=== PATIENT | female | born 1995 | race African-American/Black ===

== ENCOUNTER 2017-09-01 22:38 | Emergency (ER) | payer OTHER ==
[~2017-09-01] VITALS: Ht 157.5 cm; Wt 88.5 kg
[~2017-09-01 22:38] MED LIST: ALBU6.7H INH; FLUT1SPR5 EACH NARE
[2017-09-01 22:41] VITALS: BP 114/73; PULSE 95; RESP 18; TEMP 99; O2SAT 99
[2017-09-01] MEDS ORDERED: SODIUM CHLOR 0.9% 1000 ML INJ 1,000 ML IV SCH (23:30)
[2017-09-01] MEDS ORDERED: SODIUM CHLORIDE 0.9% FLUSH 10 ML FLUSH IV FLUSH PRN (23:30)
[2017-09-01] MEDS ORDERED: ONDANSETRON HCL 4 MG/2 ML VIAL IVP ONE (23:30)
--- NOTE | 2017-09-01 23:42 | PD ---
HPI Chief Complaint: GI Complaint Time Seen by Provider: 23:24 Travel History International Travel<30 days: No Contact w/Intl Traveler<30days: No Traveled to known affect area: No History of Present Illness HPI 22-year-old female complains of nausea vomiting patient states the symptoms started this afternoon. Family members with same symptoms. Patient denies any headache. Patient denies any chest pain or shortness of breath. Patient denies abdominal pain. Patient denies any dysuria or frequency. Patient denies any vaginal discharge or bleeding. Patient denies any fever chills. PFSH Past Medical History Asthma: Yes Diminished Hearing: No ?: Not Social History Alcohol Use: No Tobacco Use: No Substance Use: No Allergies-Medications (Allergen,Severity, Reaction): Coded Allergies: No Known Allergies (Unverified Adverse Reaction, Unknown, 09/01/17) Reported Meds & Prescriptions Reported Meds & Active Scripts Active No Active Prescriptions or Reported Medications Review of Systems General / Constitutional: No: Fever Eyes: No: Visual changes HENT: No: Headaches Cardiovascular: No: Chest Pain or Discomfort Respiratory: No: Shortness of Breath Gastrointestinal: Positive: Nausea, Vomiting, No: Abdominal Pain Genitourinary: No: Dysuria Musculoskeletal: No: Pain Skin: No Rash Neurologic: No: Weakness Psychiatric: No: Depression Endocrine: No: Polydipsia Hematologic/Lymphatic: No: Easy Bruising Physical Exam Narrative GENERAL: Well-nourished, well-developed patient. SKIN: Focused skin assessment warm/dry. HEAD: Normocephalic. EYES: No scleral icterus. No injection or drainage. NECK: Supple, trachea midline. No JVD or lymphadenopathy. CARDIOVASCULAR: Regular rate and rhythm without murmurs, gallops, or rubs. RESPIRATORY: Breath sounds equal bilaterally. No accessory muscle use. GASTROINTESTINAL: Abdomen soft, non-tender, nondistended. MUSCULOSKELETAL: No cyanosis, or edema. BACK: Nontender without obvious deformity. No CVA tenderness. Neurologic exam normal. Data Data Last Documented VS Vital Signs Date Time Temp Pulse Resp B/P (MAP) Pulse Ox O2 Delivery O2 Flow Rate FiO2 09/02/17 00:01 99 Room Air 09/01/17 23:08 20 09/01/17 22:41 99.0 95 Orders Orders Complete Blood Count With Diff (09/01/17 23:30) Comprehensive Metabolic Panel (09/01/17 23:30) Lipase (09/01/17 23:30) Urinalysis - C+S If Indicated (09/01/17 23:30) Iv Access Insert/Monitor (09/01/17 23:30) Ecg Monitoring (09/01/17 23:30) Oximetry (09/01/17 23:30) Ondansetron Inj (Zofran Inj) (09/01/17 23:30) Sodium Chlor 0.9% 1000 Ml Inj (Ns 1000 M (09/01/17 23:30) Sodium Chloride 0.9% Flush (Ns Flush) (09/01/17 23:30) Ed Urine Pregnancytest Poc (09/01/17 23:40) Metoclopramide Inj (Reglan Inj) (09/02/17 00:15) Diphenhydramine Inj (Benadryl Inj) (09/02/17 00:15) Sodium Chlor 0.9% 1000 Ml Inj (Ns 1000 M (09/02/17 00:15) Labs Laboratory Tests Test 09/01/17 23:40 09/02/17 02:16 White Blood Count 5.1 TH/MM3 Red Blood Count 4.68 MIL/MM3 Hemoglobin 13.9 GM/DL Hematocrit 41.3 % Mean Corpuscular Volume 88.3 FL Mean Corpuscular Hemoglobin 29.7 PG Mean Corpuscular Hemoglobin Concent 33.7 % Red Cell Distribution Width 13.6 % Platelet Count 378 TH/MM3 Mean Platelet Volume 8.8 FL Neutrophils (%) (Auto) 87.6 % Lymphocytes (%) (Auto) 6.2 % Monocytes (%) (Auto) 5.3 % Eosinophils (%) (Auto) 0.5 % Basophils (%) (Auto) 0.4 % Neutrophils # (Auto) 4.5 TH/MM3 Lymphocytes # (Auto) 0.3 TH/MM3 Monocytes # (Auto) 0.3 TH/MM3 Eosinophils # (Auto) 0.0 TH/MM3 Basophils # (Auto) 0.0 TH/MM3 CBC Comment DIFF FINAL Differential Comment Blood Urea Nitrogen 11 MG/DL Creatinine 1.12 MG/DL Random Glucose 124 MG/DL Total Protein 8.0 GM/DL Albumin 4.0 GM/DL Calcium Level 9.5 MG/DL Alkaline Phosphatase 80 U/L Aspartate Amino Transf (AST/SGOT) 19 U/L Alanine Aminotransferase (ALT/SGPT) 21 U/L Total Bilirubin 0.7 MG/DL Sodium Level 139 MEQ/L Potassium Level 3.4 MEQ/L Chloride Level 110 MEQ/L Carbon Dioxide Level 17.3 MEQ/L Anion Gap 12 MEQ/L Estimat Glomerular Filtration Rate 75 ML/MIN Lipase 99 U/L Urine Color YELLOW Urine Turbidity HAZY Urine pH 6.0 Urine Specific [place] 1.024 Urine Protein TRACE mg/dL Urine Glucose (UA) NEG mg/dL Urine Ketones 80 mg/dL Urine Occult Blood NEG Urine Nitrite NEG Urine Bilirubin NEG Urine Urobilinogen LESS THAN 2.0 MG/DL Urine Leukocyte Esterase TRACE Urine RBC 2 /hpf Urine WBC 1 /hpf Urine Squamous Epithelial Cells 12 /hpf Urine Bacteria RARE /hpf Urine Mucus FEW /lpf Microscopic Urinalysis Comment CULT NOT INDICATED MDM Medical Decision Making Medical Screen Exam Complete: Yes Emergency Medical Condition: Yes Interpretation(s) 3:08 AM. CBC within normal limit. WBC 5.1. 87 neutrophil. Potassium 3.4. Chloride 110. Bicarbonate 17.3. Creatinine 1.12. UA negative. Differential Diagnosis Differential diagnosis including gastroenteritis, electrolyte imbalance, dehydration, gastritis, pancreatitis, cholecystitis, UTI, pyelonephritis. Narrative Course 22-year-old female with persistent nausea vomiting since noontime today. Normal saline solution 1 L IV bolus. Zofran 4 mg IV. Reglan 10 mg IV. Benadryl 25 mg IV. Diagnosis Primary Impression: Gastroenteritis Additional Impression: Dehydration Patient Instructions: General Instructions Additional Instructions: Advance diet as tolerated. Take medications as needed for nausea vomiting. Follow-up with personal physician. Return if persistent problem or worse. Med/Other Pt SpecificInfo: Prescription(s) given Scripts Promethazine (Phenergan) 25 Mg Tablet 25 MG PO Q6H Y for NAUSEA OR VOMITING, #10 TAB 0 Refills Prov: Zay Leo MD 09/02/17 Ondansetron Odt (Zofran Odt) 4 Mg Tab 4 MG SL Q6HR Y for Nausea/Vomiting, #10 TAB 0 Refills Prov: Zay Leo MD 09/02/17 Disposition: 01 DISCHARGE HOME Condition: Stable Zay Leo MD Sep 01, 2017 23:42
[2017-09-01 23:51] LABS: AUTOMATED NEUTROPHIL # 4.5 TH/MM3 (1.8-7.7); BASOPHIL % 0.4 % (0.0-2.0); EOSINOPHIL % 0.5 % (0.0-4.0); HEMATOCRIT 41.3 % (35.0-46.0); HEMOGLOBIN 13.9 GM/DL (11.6-15.3); LYMPH % 6.2 % (9.0-44.0); LYMPHOCYTE # 0.3 TH/MM3 (1.0-4.8); MEAN CELL VOLUME 88.3 FL (80.0-100.0); MEAN CORPUSCULAR HEMOGLOBIN 29.7 PG (27.0-34.0); MEAN CORPUSCULAR HGB CONC 33.7 % (32.0-36.0); MEAN PLATELET VOLUME 8.8 FL (7.0-11.0); MONO % 5.3 % (0.0-8.0); MONOCYTE # 0.3 TH/MM3 (0-0.9); NEUT % 87.6 % (16.0-70.0); PLATELET COUNT 378 TH/MM3 (150-450); RED BLOOD COUNT 4.68 MIL/MM3 (4.00-5.30); RED CELL DISTRIBUTION WIDTH 13.6 % (11.6-17.2); WHITE BLOOD COUNT 5.1 TH/MM3 (4.0-11.0)
[2017-09-02 00:01] VITALS: O2SAT 99
[2017-09-02 00:10] LABS: AST (GOT) 19 U/L (16-38); BICARBONATE 17.3 MEQ/L (21.0-32.0); BLOOD UREA NITROGEN 11 MG/DL (7-18); CALCIUM 9.5 MG/DL (8.5-10.1); CHLORIDE 110 MEQ/L (98-107); CREATININE 1.12 MG/DL (0.50-1.00); GLOMERULAR FILTRATION RATE 75 ML/MIN (>89); GLUCOSE,RANDOM 124 MG/DL (74-106); SODIUM (NA) 139 MEQ/L (136-145)
[2017-09-02 00:14] LABS: ALKALINE PHOSPHATASE 80 U/L (45-117); ALT (GPT) 21 U/L (9-42); TOTAL BILIRUBIN ADULT 0.7 MG/DL (0.2-1.0)
[2017-09-02] MEDS ORDERED: diphenhydrAMINE HCL 50 MG/ML VIAL IV PUSH ONE (00:15)
[2017-09-02] MEDS ORDERED: METOCLOPRAMIDE HCL 10 MG/2 ML VIAL IV PUSH ONE (00:15)
[2017-09-02] MEDS ORDERED: SODIUM CHLOR 0.9% 1000 ML INJ 1,000 ML IV ONE (00:15)
[2017-09-02 02:33] LABS: BACTERIA, URINE RARE /hpf; BILIRUBIN, URINE NEG (NEG); BLOOD, URINE NEG (NEG); GLUCOSE,URINE NEG (NEG); KETONE, URINE 80 mg/dL (NEG); MUCUS URINE FEW /lpf (OCC); NITRITE,URINE NEG (NEG); SQUAMOUS EPITHELIAL CELL URINE 12 /hpf (0-5); URINE COLOR YELLOW (YELLW/STRAW); URINE LEUKOCYTE ESTERASE TRACE (NEG)
[2017-09-02] MEDS ORDERED: ZOFR4TAB3 SL (03:25)
[2017-09-02] MEDS ORDERED: PROM25TA10 PO (03:25)
== END 2017-09-02 03:56 | disposition home or self-care (01) ==
LOC: NEPC 22:38
DX: K52.9 Noninfective gastroenteritis and colitis, unspecified (principal); E86.0 Dehydration
CPT/HCPCS: 80053; 81001; 83690; 84703; 85025; 96361; 96374; 96375; 99284; J1200; J2405; J2765; J7030